=== PATIENT | male | born 1995 | race Caucasian/White ===

== ENCOUNTER 2018-12-05 00:15 | Outpatient (CLI) | payer OTHER ==
[2018-12-05 11:35] LABS: #Eosinphils 0.1 thou/uL (0.0-0.7); #Lymphocytes 1.7 thou/uL (1.20-3.40); #Monocytes 0.4 thou/uL (0.11-0.59); #Neutrophils 3.8 thou/uL (1.40-6.50); %Basophils 0.6 % (0.0-1.0); %Eosinophils 1.1 % (0.0-10.0); %Lymphocytes 28.2 % (21.0-51.0); %Monocytes 6.9 % (0.0-10.0); %Neutrophils 63.3 % (42.0-75.0); Hemoglobin 17.4 g/dL (14.0-18.0); Mean Corpuscular HGB CONC 34.8 g/dL (32.0-36.0); Mean Corpuscular Hemoglobin 32.4 pg (27.0-31.0); Mean Corpuscular Volume 93.3 fL (78.0-98.0); Mean Platelet Volume 7.9 fL (7.4-10.4); Platelet Count 221 thou/uL (130-400); RBC Distribution Width 11.2 % (11.5-14.5); Red Blood Cell (RBC) Count 5.36 mill/uL (4.70-6.10); White Blood Cell (WBC) Count 6.1 thou/uL (4.8-10.8)
[2018-12-05 12:03] LABS: Anion Gap 12 mmol/L (10-20); BUN (Urea Nitrogen) 17 mg/dL (8.9-20.6); Calc. Creatinine Clearance 0 mL/min (70-130); Calcium 10.1 mg/dL (7.8-10.44); Carbon Dioxide 29 mmol/L (22-29); Chloride 103 mmol/L (98-107); Estimated GFR-MDRD 90; Glucose 92 mg/dL (70-105); Sodium 140 mmol/L (136-145)
== END 2018-12-05 00:16 | disposition home or self-care (01) ==
LOC: LABBT 00:15
PROVIDERS: ATTEND Specialist
DX: Z01.812 Encounter for preprocedural laboratory examination (principal); R59.0 Localized enlarged lymph nodes
CPT/HCPCS: 80048; 85025

== ENCOUNTER 2018-12-09 05:44 | Day surgery (SDC) | payer OTHER ==
[2018-12-05 11:00] VITALS: BMI 26.4
[2018-12-09] MEDS ORDERED: Ketorolac Tromethamine 30 MG/ML VIAL ONE (06:09)
[2018-12-09] MEDS ORDERED: Fentanyl 100 MCG/2 ML VIAL ONE (06:30)
[2018-12-09] MEDS ORDERED: Bupivacaine HCl 0.5%/Epinephrine 1:200,000/PF 30 ml Vial ONE (06:35)
[2018-12-09] MEDS ORDERED: Lidocaine 2% 11 ML SYR ONE (06:45)
[2018-12-09] MEDS ORDERED: Midazolam HCl 2 mg/2 ml Vial ONE (07:29)
--- NOTE | 2018-12-09 10:13 | OP ---
DATE OF PROCEDURE: 12/09/2018 PREOPERATIVE DIAGNOSIS: Bilateral inguinal lymphadenopathy. POSTOPERATIVE DIAGNOSIS: Bilateral inguinal lymphadenopathy. PROCEDURE PERFORMED: Excisional biopsy of right inguinal lymph node. ANESTHESIA: General with laryngeal mask airway. INDICATIONS: The patient is a healthy 23-year-old white male. He presents with several months of inguinal lymphadenopathy. The largest of his lymph nodes is about 2 cm and has not improved with observation. He is taken to the operating room at this time for excisional biopsy. DESCRIPTION OF OPERATION: Informed consent was obtained, the patient was taken to the operating room, where general anesthesia was obtained with the patient in supine position. Right inguinal area was trimmed of hair, prepped with ChloraPrep, and draped in sterile fashion. Local anesthetic was infiltrated using 0.25% Marcaine with epinephrine. Ultrasound was utilized to identify the largest lymph node in the right groin. This was marked in a grid-type fashion on the skin. Oblique incision was created within the right groin and dissection was carried through skin and subcutaneous tissue down to the lymph node. This was dissected circumferentially. All investing lymphatics were divided between clamps and 3-0 silk ties. The specimen was removed intact and passed off the field and sent fresh for lymph node/lymphoma protocol. The wound was irrigated. Hemostasis was meticulous. Additional local anesthetic was infiltrated. Wound was closed in layers with 3-0 and 4-0 Monocryl suture. Dermabond was placed externally. There were no complication. The patient tolerated the procedure well and was taken to recovery room in stable condition. Job ID: [id number]
[2018-12-09] MEDS ORDERED: Lidocaine 1% PF 5 ML VIAL ONE (14:24)
[2018-12-09] MEDS ORDERED: Ondansetron PF 4 MG/2 ML Vial ONE (14:24)
[2018-12-09] MEDS ORDERED: Dexamethasone 20 MG/5 ML VIAL ONE (14:24)
[2018-12-09] MEDS ORDERED: Glycopyrrolate 0.2 MG/ML 5 ML SYRINGE ONE (14:24)
[2018-12-09] MEDS ORDERED: PROPOFOL 200 MG/20 ML VIAL ONE (14:24)
== END 2018-12-09 10:13 | disposition home or self-care (01) ==
LOC: SDC 05:44
PROVIDERS: ATTEND Specialist
PROC: 07BJ0ZX Excision of Left Inguinal Lymphatic, Open Approach, Diagnostic (ICD-10-PCS; principal; 2018-12-09)
PROC: 07BH0ZX Excision of Right Inguinal Lymphatic, Open Approach, Diagnostic (ICD-10-PCS; principal; 2018-12-09)
DX: R59.0 Localized enlarged lymph nodes (principal); Z90.89 Acquired absence of other organs; Z98.890 Other specified postprocedural states
CPT/HCPCS: 88184; 88307; J0131; J0670; J1100; J1885; J2001; J2250; J2405; J2704; J3010